=== PATIENT | female | born 1960 | race Caucasian/White ===

== ENCOUNTER → 2017-06-21 | Outpatient (CLI) | payer OTHER | LOC: FIMAGING 12:28 | PROVIDERS: ATTEND Physician Assistant | DX: R22.31 Localized swelling, mass and lump, right upper limb (principal); M79.604 Pain in right leg ==

== ENCOUNTER 2017-10-29 17:01 | Emergency (ER) | payer OTHER ==
[2017-10-29] MEDS ORDERED: ACETAMINOPHEN 500 MG TAB PO ONE (18:25)
[2017-10-29] MEDS ORDERED: POTASSIUM CL 10 MEQ TAB PO ONE (18:26)
[2017-10-29] MEDS ORDERED: DIAZEPAM 5 MG TAB PO ONE (18:26)
[2017-10-29] MEDS ORDERED: LIDOCAINE 4%/MENTHOL 1% PATCH TD ONE (18:31)
[2017-10-29 18:33] LABS: PLATELET COUNT 493 10^3/uL (150-400)
--- NOTE | 2017-10-29 19:05 | EDPHY ---
H & P Stated Complaint: jaw pain started yesterday, left arm pain increased today Time Seen by Provider: 10/29/17 17:20 HPI/ROS: This patient complains of neck pain left lateral over the past 2 days since lifting some heavy items [place] and having increased stress of taking care of her who currently has cancer with complications. She presented today with additional symptoms the left jaw pain and left arm pain. She states the symptoms are severe intensity since this morning with antecedent neck pain for couple days. 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 She also felt like she had left-sided facial weakness earlier though she does not have it now. A friend brought her in by private vehicle for evaluation of the symptoms. ROS: Constitutional: No fevers Neuro: She had a headache earlier in the day left hemicranial that is now resolving. No recent head injuries. No other focal numbness tingling weakness. She denies any acute confusion. HEENT: No recent head injuries. No URI symptoms except for a sore throat that is mild in intensity. She thinks she might have"a virus". Pulmonary: No cough shortness of breath Cardiovascular: No lightheadedness or chest pain. Musculoskeletal: The arm pain does not increase with movement. No recent trauma to the left arm or shoulder. No other musculoskeletal complaints at this time. GI: Nausea but no abdominal pain. She is tolerating normal diet. : No urinary symptoms Integumentary: No skin rash 10 point review of symptoms is performed and otherwise negative with exception of pertinent positives and negatives listed in HPI and ROS Source: Patient Exam Limitations: No limitations - Medical/Surgical History PMH: Benign meningioma Blood dyscrasia with thrombocytosis followed by Dr. Jhonny Mike oncology- takes hydroxyurea for this since April. She was told that she may be hypercoagulable due to this condition. Hx Asthma: No Hx Chronic Respiratory Disease: No Hx Diabetes: No Hx Cardiac Disease: No Hx Renal Disease: No Hx Cirrhosis: No Hx Alcoholism: No Hx HIV/AIDS: No Hx Splenectomy or Spleen Trauma: No Other PMH: chronic bronchitis, JAK2,. benign brain tumor - Social History Smoking Status: Former smoker Alcohol Use: None Drug Use: None Additional Social History: She is caring for her who has cancer with complications at home - Physical Exam Exam: Physical exam: Vital signs are normal General: Patient is in no acute distress. HEENT: Is no external evidence of trauma on exam. Eyes: Pupils are equal and reactive to light. Extraocular motions are intact. Optic fundi: Clear with no papilledema or hemorrhage. Nose atraumatic. Ears: Clear bilaterally with no hemotympanum. Oropharynx: No dental trauma or malocclusion. No intraoral lacerations. She has tenderness at the left TMJ the partially reproduces her jaw pain. No dental tenderness to percussion or other intraoral findings. Eyes: Pupils are equal and reactive to light. Extraocular motions are intact. Optic fundi: Clear with no papilledema or hemorrhage. Neck: No midline tenderness. She has left trapezius muscle spasm that reproduces her symptoms extends in the left lateral neck. Lungs: Clear to auscultation bilaterally Cardiac: Regular rate and rhythm no murmur gallop or rub. Abdomen: Soft nontender no organomegaly Neuro: GCS of 15. Cranial nerves II through XII intact. Cerebellar exam is normal as judged by symmetric rapid hand movements bilaterally. No pronator drift. No sensory or motor deficits are appreciated. Extremities: No left upper arm or forearm tenderness or other abnormal findings Initial differential diagnosis: Cervical strain, trapezius muscle spasm with radicular symptoms of left arm, tension headache, MFG ASSOC lesion, intracranial bleed , myocardial ischemic disease Constitutional: Initial Vital Signs Temperature (C) 36.8 C 10/29/17 17:12 Heart Rate 71 10/29/17 17:12 Respiratory Rate 18 10/29/17 17:12 Blood Pressure 152/78 H 10/29/17 17:12 O2 Sat (%) 95 10/29/17 17:12 O2 Delivery Mode Room Air Allergies/Adverse Reactions: Penicillins Allergy (Verified 10/29/17 17:10) prednisone Allergy (Verified 10/29/17 17:10) Home Medications: Medication Instructions Recorded Aspirin [Aspirin 81mg (*)] 81 mg PO DAILY 12/19/15 Hydroxyurea 10/29/17 Lidocaine [Lidoderm] 1 each TP DAILY #15 adh..patch 10/29/17 Methocarbamol [Robaxin 750 mg (*)] 750 - 1,500 mg PO QID PRN #30 tab 10/29/17 Potassium Cl [Klor-Con 20 meq (*)] 20 meq PO DAILY #10 tab 10/29/17 levETIRAcetam 10/29/17 Medical Decision Making - Diagnostics EKG Interpretation: 12 lead EKG performed shortly after arrival at 5:16 p.m. Reveals sinus rhythm at 71 Intervals: Normal throughout [place]: Normal throughout ST segments: Normal throughout Overall assessment: Normal EKG Repeat EKG performed at 9:38 p.m. Indication onset of chest pain reveals sinus rhythm at 59 Intervals: Normal throughout [place]: Normal throughout Overall assessment normal EKG Imaging Results: Imaging Impressions Head CT 10/29/17 17:20 Impression: 1. No acute intracranial process. 2. Redemonstration of a left posterior fossa meningioma measuring 2.1 cm. Findings and recommendations discussed with KONSTANTIN RAY at 1757 hour, 12/2017. Imaging: Discussed imaging studies w/ prenatal nurse Radiologist ED Course/Re-evaluation: IV was established but the patient complained of pain at the IV site and requested that be removed immediately after was placed. Patient's neck pain is treated with Lidoderm patch but she refuses any Tylenol ibuprofen other medications. POC metabolic panel revealed a low potassium 3.1. This is cross checked with an i-STAT potassium muscle 03.2. She vomited after being given a dose of potassium prior to having the subsequent doses. She is declining sublingual Zofran explaining the nausea is resolving. Patient finally accepted sublingual Zofran for recurrent nausea but declines other medications will continue to complain of neck pain. Discussion: Patient with neck pain, intermittent headaches comma left-sided facial paresthesias with history of meningioma and blood dyscrasia with thrombocytosis. I think that her neck pain is musculoskeletal in etiology after her workup with a normal D-dimer. I think that she may have radiculopathy to her arm. With normal appearing EKG and troponin and lack of other ischemic symptoms, I do not think she has myocardial ischemic disease causing her symptoms today. CT head reveals no change in her meningioma which remains 2 x 1 cm or so in size and no other intracranial abnormalities. Do not think she is having stroke. Her paresthesias in left face may be related to her prior Lopes's palsy. I counseled regarding this. Patient is hesitant to take analgesics for reasons that are unclear for her neck pain. The cause of her nausea is not clear the with mild sore throats possible that she also has a viral illness contributing to her symptoms. Her pharyngeal exam is normal however. She has no leukocytosis. The patient has hypokalemia and has had this before. I sent a basic metabolic panel Hospital that showed normal potassium but this was hours after the initial blood draw & I suspect that there is some lysis of cells that caused pseudo normalization of her potassium. No red flag findings or other concerning findings and workup. However, the patient understands the need to return emergency department should she have worsening symptoms despite treatment plan of Zofran, Lidoderm patch, ibuprofen and Tylenol and methocarbamol. She will follow up with primary care physician. Course continue: After continued to complain of neck pain but refusing to take any analgesics for her pain for quite some time after being given discharge instructions the patient complained of chest pain. Her repeat EKG is performed at 9:37 p.m. Repeat EKG is normal Repeat exam reveals chest wall tenderness that reproduces her symptoms lateral to the left breast. Patient still has not taken Zofran but vomited a 2nd time. Her daughter arrived here revealed the patient has a history of migraines. Given her mild intermittent headache nausea vomiting suspect that she has a migrainous potential cause of her symptoms. She however declines any further treatment I will proceed home with plan of Zofran, ibuprofen Tylenol methocarbamol. - Data Points Laboratory Results: Laboratory Results 10/29/17 17:25 10/29/17 17:25 10/29/17 10/29/17 10/29/17 18:21 17:43 17:31 WBC RBC Hgb POC Hgb 13.3 gm/dL gm/dL (12.6-16.3) Hct POC Hct 39 % % (38-47) MCV MCH MCHC RDW Plt Count MPV Neut % (Auto) Lymph % (Auto) Foard % (Auto) Eos % (Auto) Baso % (Auto) Nucleat RBC Rel Count Absolute Neuts (auto) Absolute Lymphs (auto) Absolute Monos (auto) Absolute Eos (auto) Absolute Basos (auto) Absolute Nucleated RBC Immature Gran % Immature Gran # POC Sodium 135 mEq/L mEq/L 137 mEq/L mEq/L (135-145) (135-145) Sodium POC Potassium 3.2 mEq/L L mEq/L 3.1 mEq/L L mEq/L (3.3-5.0) (3.3-5.0) Potassium POC Chloride 100 mEq/L mEq/L 101.0 mEq/L mEq/L (97-110) (97-110) Chloride Carbon Dioxide POC Total CO2 23 mEq/L mEq/L (22-31) Anion Gap POC BUN 12 mg/dL mg/dL 11 mg/dL mg/dL (7-23) (7-23) BUN Creatinine POC Creatinine 1.9 mg/dL H mg/dL 0.8 mg/dL mg/dL (0.6-1.0) (0.6-1.0) Estimated GFR Glucose POC Glucose 104 mg/dL H mg/dL 99 mg/dL mg/dL (70-100) (70-100) POC Calcium 9.4 mg/dL mg/dL (8.5-10.4) Calcium POC Troponin I 0.00 ng/mL ng/mL (0.00-0.08) 10/29/17 10/29/17 17:25 17:25 WBC 9.45 10^3/uL 10^3/uL (3.80-9.50) RBC 3.78 10^6/uL L 10^6/uL (4.18-5.33) Hgb 13.0 g/dL g/dL (12.6-16.3) POC Hgb Hct 38.1 % % (38.0-47.0) POC Hct MCV 100.8 fL H fL (81.5-99.8) MCH 34.4 pg H pg (27.9-34.1) MCHC 34.1 g/dL g/dL (32.4-36.7) RDW 11.6 % % (11.5-15.2) Plt Count 493 10^3/uL H 10^3/uL (150-400) MPV 10.6 fL fL (8.7-11.7) Neut % (Auto) 69.8 % % (39.3-74.2) Lymph % (Auto) 22.9 % % (15.0-45.0) Foard % (Auto) 6.2 % % (4.5-13.0) Eos % (Auto) 0.3 % L % (0.6-7.6) Baso % (Auto) 0.5 % % (0.3-1.7) Nucleat RBC Rel Count 0.0 % % (0.0-0.2) Absolute Neuts (auto) 6.59 10^3/uL H 10^3/uL (1.70-6.50) Absolute Lymphs (auto) 2.16 10^3/uL 10^3/uL (1.00-3.00) Absolute Monos (auto) 0.59 10^3/uL 10^3/uL (0.30-0.80) Absolute Eos (auto) 0.03 10^3/uL 10^3/uL (0.03-0.40) Absolute Basos (auto) 0.05 10^3/uL 10^3/uL (0.02-0.10) Absolute Nucleated RBC 0.00 10^3/uL 10^3/uL (0-0.01) Immature Gran % 0.3 % % (0.0-1.1) Immature Gran # 0.03 10^3/uL 10^3/uL (0.00-0.10) POC Sodium Sodium 134 mEq/L L mEq/L (135-145) POC Potassium Potassium 3.9 mEq/L mEq/L (3.3-5.0) POC Chloride Chloride 98 mEq/L mEq/L (97-110) Carbon Dioxide 23 mEq/l mEq/l (22-31) POC Total CO2 Anion Gap 13 mEq/L mEq/L (8-16) POC BUN BUN 13 mg/dL mg/dL (7-23) Creatinine 0.6 mg/dL mg/dL (0.6-1.0) POC Creatinine Estimated GFR > 60 Glucose 90 mg/dL mg/dL (70-100) POC Glucose POC Calcium Calcium 9.4 mg/dL mg/dL (8.5-10.4) POC Troponin I D-dimer is normal Medications Given: Discontinued Medications Acetaminophen (Tylenol) 1,000 mg PO EDNOW ONE Stop: 10/29/17 18:26 Last Admin: 10/29/17 19:02 Dose: Not Given Diazepam (Valium) 5 mg PO EDNOW ONE Stop: 10/29/17 18:27 Last Admin: 10/29/17 19:30 Dose: Not Given Diphenhydramine HCl (Benadryl Injection) 25 mg IVP EDNOW ONE Stop: 10/29/17 21:44 Last Admin: 10/29/17 21:56 Dose: Not Given Sodium Chloride (Ns) 1,000 mls @ 0 mls/hr IV ONCE ONE; Wide Open PRN Reason: Protocol Stop: 10/29/17 21:44 Last Admin: 10/29/17 21:57 Dose: Not Given Ketorolac Tromethamine (Toradol) 30 mg IVP EDNOW ONE Stop: 10/29/17 21:44 Last Admin: 10/29/17 21:57 Dose: Not Given Metoclopramide HCl (Reglan Injection) 10 mg IVP EDNOW ONE Stop: 10/29/17 21:44 Last Admin: 10/29/17 21:57 Dose: Not Given Miscellaneous Information (Patch Removal) 1 ea TD DAILY21 CAIN Stop: 04/27/18 20:59 Last Admin: 10/29/17 19:15 Dose: Not Given Miscellaneous Medication (Icy Hot Lidocaine/Menthol 4%/1% Patch) 1 patch TD EDNOW ONE Stop: 10/29/17 18:32 Last Admin: 10/29/17 18:56 Dose: 1 patch Ondansetron HCl (Zofran Odt) 8 mg PO EDNOW ONE Stop: 10/29/17 19:10 Last Admin: 10/29/17 19:31 Dose: Not Given Potassium Chloride (Klor-Con) 30 meq PO EDNOW ONE Stop: 10/29/17 18:27 Last Admin: 10/29/17 18:56 Dose: 10 meq Point of Care Test Results: Chemistry 10/29/17 10/29/17 10/29/17 18:21 17:43 17:31 POC Sodium 135 mEq/L mEq/L 137 mEq/L mEq/L (135-145) (135-145) POC Potassium 3.2 mEq/L L mEq/L 3.1 mEq/L L mEq/L (3.3-5.0) (3.3-5.0) POC Chloride 100 mEq/L mEq/L 101.0 mEq/L mEq/L (97-110) (97-110) POC Total CO2 23 mEq/L mEq/L (22-31) POC BUN 12 mg/dL mg/dL 11 mg/dL mg/dL (7-23) (7-23) POC Creatinine 1.9 mg/dL H mg/dL 0.8 mg/dL mg/dL (0.6-1.0) (0.6-1.0) POC Glucose 104 mg/dL H mg/dL 99 mg/dL mg/dL (70-100) (70-100) POC Calcium 9.4 mg/dL mg/dL (8.5-10.4) POC Troponin I 0.00 ng/mL ng/mL (0.00-0.08) ISTAT H&H 10/29/17 18:21 POC Hgb 13.3 gm/dL gm/dL (12.6-16.3) POC Hct 39 % % (38-47) D-Dimer D-Dimer Collection Date 10/29/17 D-Dimer Collection Time 20:10 D-Dimer (ng/ml) 101 ng/ml Departure - Departure Disposition: Home, Routine, Self-Care Clinical Impression: Neck pain, Jaw pain, Paresthesias, Facial paresthesia, Musculoskeletal chest pain Headache Qualifiers: Headache type: tension-type Headache chronicity pattern: acute headache Intractability: not intractable Qualified Code(s): G44.209 - Tension-type headache, unspecified, not intractable Condition: Good Instructions: Muscle Strain (ED), Neck Pain (ED) Additional Instructions: Diagnoses: Neck pain 2. Trapezius muscle spasm 3. Hypokalemia 4. Paresthesia 5. Chest wall pain Plan: Tylenol and/or ibuprofen for pain Lidoderm patches and methocarbamol muscle relaxant in addition as needed Potassium supplement as prescribed Follow up with primary care physician for recheck in 3-7 days. Return for any significant worsening despite the treatment plan Referrals: Asha Benavides, PAC [Primary Care Provider] - As per Instructions Prescriptions: Lidocaine [Lidoderm] 1 each TP DAILY #15 adh..patch Methocarbamol [Robaxin 750 mg (*)] 750 - 1,500 mg PO QID PRN #30 tab PRN Reason: Muscle Spasms Potassium Cl [Klor-Con 20 meq (*)] 20 meq PO DAILY #10 tab
[2017-10-29] MEDS ORDERED: ONDANSETRON DISINTEGRATING 4 MG TAB ONE (19:10)
[2017-10-29] MEDS: ONDANSETRON DISINTEGRATING 4 MG TAB PO ONE ×2 (19:11→19:31)
--- NOTE | 2017-10-29 19:31 | CPEKG ---
Test Reason : OPEN Blood Pressure : / mmHG Vent. Rate : 071 BPM Atrial Rate : 071 BPM P-R Int : 155 ms QRS Dur : 097 ms QT Int : 416 ms P-R-T Axes : 071 064 090 degrees QTc Int : 453 ms Sinus rhythm Confirmed by Fito Woodall ([id number]) on 10/29/2017 7:31:18 PM Referred By: Confirmed By:Fito Woodall
[2017-10-29] MEDS ORDERED: IBUPROFEN 600 MG TAB PO ONE (20:04)
[2017-10-29] MEDS ORDERED: PATCH REMOVAL 1 EA PATCH TD SCH (21:00)
[2017-10-29 21:38] VITALS: BP 134/78
[2017-10-29] MEDS ORDERED: METOCLOPRAMIDE 10 MG/2 ML VIAL IVP ONE (21:43)
[2017-10-29] MEDS ORDERED: NS 1,000 ML IV ONE (21:43)
[2017-10-29] MEDS ORDERED: KETOROLAC 30 MG/1 ML SDV IVP ONE (21:43)
--- NOTE | 2017-11-06 15:03 | CPEKG ---
Test Reason : OPEN Blood Pressure : / mmHG Vent. Rate : 059 BPM Atrial Rate : 060 BPM P-R Int : 153 ms QRS Dur : 104 ms QT Int : 448 ms P-R-T Axes : 042 061 079 degrees QTc Int : 444 ms Sinus rhythm Confirmed by Fito Woodall ([id number]) on 11/06/2017 3:02:48 PM Referred By: Confirmed By:Fito Woodall
== END 2017-10-29 21:58 | disposition home or self-care (01) ==
LOC: CED 17:01
DX: G44.209 Tension-type headache, unspecified, not intractable (principal); M54.2 Cervicalgia; R68.84 Jaw pain; R20.2 Paresthesia of skin; R07.89 Other chest pain; Z87.891 Personal history of nicotine dependence
CPT/HCPCS: 70450-PO; 80048-PO; 82435-PO; 82565-PO; 82947-PO; 84132-PO; 84295-PO; 84484-PO; 84520-PO; 85014-PO; J1200; J1885; J2765